=== PATIENT | female | born 1985 | race Hispanic/Latino ===

== ENCOUNTER 2019-01-04 08:00 | Emergency (ER) | payer MEDICAID, OTHER ==
[2019-01-04 08:42] LABS: RAPID GROUP A STREP NEGATIVE (NEGATIVE)
[2019-01-04] MEDS ORDERED: CEFTRIAXONE SODIUM 1 GM ONE (08:42)
[2019-01-04] MEDS ORDERED: KETOROLAC TROMETHAMINE 30MG/ML ONE (08:42)
[2019-01-04] MEDS ORDERED: DEXAMETHASONE SOD PHOSPHATE 10MG/ML 1ML VIAL ONE (08:42)
[2019-01-04] MEDS ORDERED: SODIUM CHLORIDE 0.9% 1000ML 1,000 ML IV ONE (08:43)
== END 2019-01-04 10:18 | disposition home or self-care (01) ==
LOC: EDH 08:00
DX: J06.9 Acute upper respiratory infection, unspecified (principal); Z90.49 Acquired absence of other specified parts of digestive tract; Z98.890 Other specified postprocedural states
CPT/HCPCS: 71045; 87804 ×2; 87880; 96374; 96375; 99285; J0696; J1100; J1885; J7030

== ENCOUNTER 2019-01-21 16:16 | Emergency (ER) | payer SELFPAY ==
[2019-01-21 16:51] LABS: BASOPHILS % (AUTO) 0.6 % (0.0-5.0); EOSINOPHILS % (AUTO) 2.9 % (0.0-8.0); HEMATOCRIT 40.7 % (36-48); LYMPHOCYTES % (AUTO) 24.6 % (21.0-51.0); MEAN CORPUSCULAR HEMOGLOBIN 27.3 pg (27.0-33.0); MEAN CORPUSCULAR HGB CONC 33.1 g/dL (32.0-36.0); MEAN CORPUSCULAR VOLUME 82.3 fL (79-99); MONOCYTES % (AUTO) 4.7 % (3.0-13.0); NEUTROPHILS % (AUTO) 67.2 % (40.0-77.0); NUCLEATED RED BLOOD CELLS 0.1 % (0.0-0.19); PLATELET COUNT (AUTO) 298 K/uL (130-400); RED BLOOD CELL COUNT(AUTO) 4.95 MIL/uL (4.00-5.50); RED CELL DISTRIBUTION WIDTH 13.4 % (11.0-15.5); WHITE BLOOD COUNT (AUTO) 10.8 K/uL (4.8-10.8)
[2019-01-21 17:03] LABS: CREATININE 0.8 mg/dL (0.5-1.5); POTASSIUM 3.9 mmol/L (3.5-5.1)
[2019-01-21] MEDS ORDERED: ONDANSETRON HCL 4 MG/2 ML VIAL ONE (17:03)
[2019-01-21] MEDS ORDERED: SODIUM CHLORIDE 0.9% 1000ML 1,000 ML IV ONE (17:04)
[2019-01-21] MEDS ORDERED: MORPHINE SULFATE 4 MG/1ML SYG ONE (17:04)
[2019-01-21 17:07] LABS: ALBUMIN 3.7 g/dL (3.5-5.0); BILIRUBIN,TOTAL 0.5 mg/dL (0.2-1.0); TOTAL PROTEIN, SERUM 7.8 g/dL (6.0-8.3)
[2019-01-21 17:11] LABS: APPEARANCE,URINE Cloudy (CLEAR); BILIRUBIN,URINE Negative (NEGATIVE); COLOR,URINE Yellow (YELLOW); GLUCOSE, URINE (UA) Negative (NEGATIVE); KETONES,URINE Negative (NEGATIVE); LEUKOCYTE ESTERASE ,URINE Negative (NEGATIVE); NITRATE,URINE Negative (NEGATIVE); OCCULT BLOOD,URINE Negative (NEGATIVE); PROTEIN,URINE Negative (NEGATIVE)
[2019-01-21 17:15] LABS: HCG,QUAL RESULT NEGATIVE (NEGATIVE)
[2019-01-21 17:16] LABS: BACTERIA,URINE Few /HPF (None Seen); RBC,URINE 0-1 /HPF (0-1); WBC,URINE 0-1 /HPF (0-1)
[2019-01-21 17:17] LABS: SQUAMOUS EPITHELIAL CELL,UR Moderate /HPF (0-2)
[2019-01-21] MEDS ORDERED: IOHEXOL-350 75 ML VIAL IV ONE (17:19)
[2019-01-21] MEDS ORDERED: NALOXONE HCL 0.4 MG/1 ML ML ONE (18:04)
[2019-01-21] MEDS ORDERED: KETOROLAC TROMETHAMINE 30MG/ML ONE (19:14)
== END 2019-01-21 20:01 | disposition home or self-care (01) ==
LOC: EDH 16:16
DX: K43.9 Ventral hernia without obstruction or gangrene (principal); R10.33 Periumbilical pain; E66.01 Morbid (severe) obesity due to excess calories; Z68.45 Body mass index [BMI] 70 or greater, adult
CPT/HCPCS: 36415; 74177; 80053; 81001; 81025; 83690; 85025; 96374; 96375; 99285; J1885; J2270; J2310; J2405; J7030; Q9967

== ENCOUNTER 2021-12-13 19:53 | Emergency (ER) | payer MEDICAID, OTHER ==
[~2021-12-13] VITALS: Ht 152.4 cm; Wt 178.3 kg
[2021-12-13] MEDS ORDERED: SOLU-MEDROL 125MG VIAL IVP ONE (20:30)
[2021-12-13] MEDS ORDERED: DiphenhydrAMINE HCL 50 MG/ML VIAL IV ONE (20:30)
[2021-12-13] MEDS ORDERED: EPINEPHRINE PF 1MG (1:1,000) 1 MG/ML AMP IM ONE (20:30)
[2021-12-13 20:50] VITALS: BP 157/96
[2021-12-13] MEDS ORDERED: PRED20TA3 PO (20:57)
[2021-12-13] MEDS ORDERED: FAMO20TA8 PO (20:57)
== END 2021-12-13 21:17 | disposition home or self-care (01) ==
LOC: EDH 19:55
DX: L23.9 Allergic contact dermatitis, unspecified cause (principal); Z90.49 Acquired absence of other specified parts of digestive tract; Z98.890 Other specified postprocedural states
CPT/HCPCS: 99284; 96374; 96375; 96372; J1200; J2930; J0171

== ENCOUNTER 2022-02-11 12:18 | Emergency (ER) | payer MEDICAID, OTHER ==
[~2022-02-11] VITALS: Ht 152.4 cm; Wt 11.6 kg
[~2022-02-11 12:18] MED LIST: FAMO20TA8 PO; PRED20TA3 PO
[2022-02-11 14:23] VITALS: BP 123/66
[2022-02-11] MEDS ORDERED: FLUT16H NASAL (15:07)
[2022-02-11] MEDS ORDERED: BENZ-39 PO (15:07)
== END 2022-02-11 15:21 | disposition home or self-care (01) ==
LOC: EDH 12:18
DX: J00 Acute nasopharyngitis [common cold] (principal); Z20.822 Contact with and (suspected) exposure to COVID-19
CPT/HCPCS: 99283; 87635; 87880; 87804 ×2; C9803

== ENCOUNTER → 2022-04-08 | Outpatient (CLI) | payer OTHER ==
[~2022-04-08] VITALS: Wt 188.2 kg
[~2022-04-08] MED LIST changes: +BENZ-39 PO; +FLUT16H NASAL
== END | disposition home or self-care (01) ==
LOC: DTH 09:12
PROVIDERS: ATTEND Surgery
DX: Z71.3 Dietary counseling and surveillance (principal); E66.01 Morbid (severe) obesity due to excess calories; E11.9 Type 2 diabetes mellitus without complications; I10 Essential (primary) hypertension; M19.91 Primary osteoarthritis, unspecified site; K21.9 Gastro-esophageal reflux disease without esophagitis; E78.00 Pure hypercholesterolemia, unspecified; K76.0 Fatty (change of) liver, not elsewhere classified; G47.33 Obstructive sleep apnea (adult) (pediatric); Z68.45 Body mass index [BMI] 70 or greater, adult
CPT/HCPCS: 97802

== ENCOUNTER → 2022-05-04 | Outpatient (CLI) | payer OTHER | END | disposition home or self-care (01) | LOC: DTH 09:00 | PROVIDERS: ATTEND Surgery | DX: Z71.3 Dietary counseling and surveillance (principal); E66.01 Morbid (severe) obesity due to excess calories; E11.9 Type 2 diabetes mellitus without complications; I10 Essential (primary) hypertension; E78.00 Pure hypercholesterolemia, unspecified; K21.9 Gastro-esophageal reflux disease without esophagitis; M19.91 Primary osteoarthritis, unspecified site; K76.0 Fatty (change of) liver, not elsewhere classified; Z68.45 Body mass index [BMI] 70 or greater, adult | CPT/HCPCS: 97803 ==

== ENCOUNTER → 2022-06-01 | Outpatient (CLI) | payer OTHER | END | disposition home or self-care (01) | LOC: DTH 08:59 | PROVIDERS: ATTEND Surgery | DX: Z71.3 Dietary counseling and surveillance (principal); E66.01 Morbid (severe) obesity due to excess calories; E11.9 Type 2 diabetes mellitus without complications; I10 Essential (primary) hypertension; E78.00 Pure hypercholesterolemia, unspecified; K76.0 Fatty (change of) liver, not elsewhere classified; M19.91 Primary osteoarthritis, unspecified site; K21.9 Gastro-esophageal reflux disease without esophagitis; G47.33 Obstructive sleep apnea (adult) (pediatric); Z68.45 Body mass index [BMI] 70 or greater, adult | CPT/HCPCS: 97803 ==

== ENCOUNTER → 2022-06-29 | Outpatient (CLI) | payer OTHER | END | disposition home or self-care (01) | LOC: DTH 09:02 | PROVIDERS: ATTEND Surgery | DX: Z71.3 Dietary counseling and surveillance (principal); E66.01 Morbid (severe) obesity due to excess calories; E11.9 Type 2 diabetes mellitus without complications; I10 Essential (primary) hypertension; E78.00 Pure hypercholesterolemia, unspecified; K76.0 Fatty (change of) liver, not elsewhere classified; K21.9 Gastro-esophageal reflux disease without esophagitis; M19.91 Primary osteoarthritis, unspecified site; G47.33 Obstructive sleep apnea (adult) (pediatric); Z68.45 Body mass index [BMI] 70 or greater, adult | CPT/HCPCS: 97803 ==

== ENCOUNTER → 2022-08-19 | Outpatient (CLI) | payer OTHER | END | disposition home or self-care (01) | LOC: DTH 09:10 | PROVIDERS: ATTEND Surgery | DX: Z71.3 Dietary counseling and surveillance (principal); E66.01 Morbid (severe) obesity due to excess calories; E11.9 Type 2 diabetes mellitus without complications; I10 Essential (primary) hypertension; M19.91 Primary osteoarthritis, unspecified site; E78.00 Pure hypercholesterolemia, unspecified; K76.0 Fatty (change of) liver, not elsewhere classified; K21.9 Gastro-esophageal reflux disease without esophagitis; Z68.45 Body mass index [BMI] 70 or greater, adult | CPT/HCPCS: 97803 ==

== ENCOUNTER → 2022-09-30 | Outpatient (CLI) | payer OTHER | END | disposition home or self-care (01) | LOC: DTH 10:06 | PROVIDERS: ATTEND Surgery | DX: Z71.3 Dietary counseling and surveillance (principal); E66.01 Morbid (severe) obesity due to excess calories; G47.33 Obstructive sleep apnea (adult) (pediatric); E11.9 Type 2 diabetes mellitus without complications; I10 Essential (primary) hypertension; M19.91 Primary osteoarthritis, unspecified site; E78.00 Pure hypercholesterolemia, unspecified; K76.0 Fatty (change of) liver, not elsewhere classified; K21.9 Gastro-esophageal reflux disease without esophagitis; Z68.45 Body mass index [BMI] 70 or greater, adult | CPT/HCPCS: 97803 ==

== ENCOUNTER → 2022-10-21 | Outpatient (CLI) | payer OTHER | END | disposition home or self-care (01) | LOC: DTH 10:56 | PROVIDERS: ATTEND Surgery | DX: Z71.3 Dietary counseling and surveillance (principal); E66.01 Morbid (severe) obesity due to excess calories; G47.33 Obstructive sleep apnea (adult) (pediatric); E11.9 Type 2 diabetes mellitus without complications; I10 Essential (primary) hypertension; M19.91 Primary osteoarthritis, unspecified site; E78.00 Pure hypercholesterolemia, unspecified; K76.0 Fatty (change of) liver, not elsewhere classified; K21.9 Gastro-esophageal reflux disease without esophagitis; Z68.45 Body mass index [BMI] 70 or greater, adult | CPT/HCPCS: 97803 ==

== ENCOUNTER → 2022-11-17 | Outpatient (CLI) | payer OTHER | END | disposition home or self-care (01) | LOC: DTH 10:04 | PROVIDERS: ATTEND Surgery | DX: Z71.3 Dietary counseling and surveillance (principal); E66.01 Morbid (severe) obesity due to excess calories; G47.33 Obstructive sleep apnea (adult) (pediatric); E11.9 Type 2 diabetes mellitus without complications; I10 Essential (primary) hypertension; M19.90 Unspecified osteoarthritis, unspecified site; E78.00 Pure hypercholesterolemia, unspecified; K76.0 Fatty (change of) liver, not elsewhere classified; K21.9 Gastro-esophageal reflux disease without esophagitis; Z68.45 Body mass index [BMI] 70 or greater, adult | CPT/HCPCS: 97803 ==

== ENCOUNTER 2022-12-02 05:46 | Emergency (ER) | payer MEDICAID, OTHER ==
[~2022-12-02] VITALS: Ht 152.4 cm; Wt 191.0 kg
[2022-12-02 06:16] VITALS: BP 136/78; PULSE 95; RESP 20; O2SAT 95
[2022-12-02] MEDS ORDERED: IBUP-1493 PO (06:51)
[2022-12-02] MEDS ORDERED: IBUPROFEN 800 MG TAB PO ONE (07:00)
== END 2022-12-02 07:18 | disposition home or self-care (01) ==
LOC: EDH 05:46
DX: M79.672 Pain in left foot (principal); I10 Essential (primary) hypertension; E78.00 Pure hypercholesterolemia, unspecified; E66.01 Morbid (severe) obesity due to excess calories; Z68.45 Body mass index [BMI] 70 or greater, adult; Z90.49 Acquired absence of other specified parts of digestive tract; Z79.899 Other long term (current) drug therapy
CPT/HCPCS: 73630

== ENCOUNTER 2023-01-13 13:41 | Emergency (ER) | payer MEDICAID ==
[~2023-01-13] VITALS: Ht 152.4 cm; Wt 174.6 kg
[~2023-01-13 13:41] MED LIST changes: +ATOR10TA69 PO; -BENZ-39 PO; -FAMO20TA8 PO; -FLUT16H NASAL; +LOSA50TA64 PO; -PRED20TA3 PO
[2023-01-13 15:15] VITALS: BP 126/82; PULSE 89; RESP 16; O2SAT 98
[2023-01-13 15:18] LABS: BASOPHILS # (AUTO) 0.06 K/uL (0.00-0.20); BASOPHILS % (AUTO) 0.6 % (0.0-5.0); EOSINOPHILS # (AUTO) 0.28 K/uL (0.00-0.70); EOSINOPHILS % (AUTO) 2.9 % (0.0-8.0); HEMATOCRIT 41.5 % (36-48); IMMATURE GRANULOCYTE ABSOLUTE 0.04 K/uL (0-1); LYMPHOCYTES # (AUTO) 2.4 K/uL (1.0-4.8); MEAN CORPUSCULAR HEMOGLOBIN 27.4 pg (27.0-33.0); MEAN CORPUSCULAR HGB CONC 32.5 g/dL (32.0-36.0); MEAN CORPUSCULAR VOLUME 84.2 fL (79-99); MONOCYTES # (AUTO) 0.6 K/uL (0.1-1.0); MONOCYTES % (AUTO) 6.4 % (3.0-13.0); NEUTROPHILS # (AUTO) 6.5 K/uL (1.8-7.7); NEUTROPHILS % (AUTO) 65.7 % (40.0-77.0); PLATELET COUNT (AUTO) 328 K/uL (130-400); RED BLOOD CELL COUNT(AUTO) 4.93 MIL/uL (4.00-5.50); WHITE BLOOD COUNT (AUTO) 9.8 K/uL (4.8-10.8)
[2023-01-13 15:27] LABS: CREATININE 1.4 mg/dL (0.5-1.5); POTASSIUM 3.4 mmol/L (3.5-5.1)
[2023-01-13 15:32] LABS: ALBUMIN 3.9 g/dL (3.5-5.0); BILIRUBIN,TOTAL 0.8 mg/dL (0.2-1.0); TOTAL PROTEIN, SERUM 8.5 g/dL (6.0-8.3)
[2023-01-13 15:37] LABS: HCG,QUALITATIVE URINE NEGATIVE (NEGATIVE)
[2023-01-13] MEDS ORDERED: IOHEXOL-350 75 ML VIAL IV ONE (15:51)
[2023-01-13 16:14] LABS: ADD UA MICROSCOPIC YES; APPEARANCE,URINE TURBID (CLEAR); BILIRUBIN,URINE NEGATIVE (NEGATIVE); COLOR,URINE BROWN (YELLOW); GLUCOSE, URINE (UA) NEGATIVE (NEGATIVE); KETONES,URINE 10 mg/dL (NEGATIVE); LEUKOCYTE ESTERASE ,URINE 500 Leu/uL (NEGATIVE); NITRATE,URINE NEGATIVE (NEGATIVE); OCCULT BLOOD,URINE LARGE (NEGATIVE); PH,URINE 5.5 (5.0-8.0); PROTEIN,URINE 100 mg/dL (NEGATIVE); UROBILINOGEN,URINE 0.2 mg/dL (0.2-1.0)
[2023-01-13] MEDS ORDERED: CEFTRIAXONE 1G VIAL IVPB ONE (16:30)
[2023-01-13] MEDS ORDERED: POTASSIUM BICARB/CIT AC 25 MEQ TABLET.EFF PO ONE (16:30)
[2023-01-13 16:33] LABS: BACTERIA,URINE MOD /HPF (None Seen); MUCUS,URINE FEW LPF (None Seen); RBC,URINE TNTC /HPF (0-1); SQUAMOUS EPITHELIAL CELL,UR MANY /HPF (0-2); WBC,URINE TNTC /HPF (0-1)
[2023-01-13] MEDS ORDERED: ONDANSETRON 4MG INJ IVP ONE (17:00)
[2023-01-13] MEDS ORDERED: MORPHINE 4 MG SYG IM ONE (17:00)
[2023-01-13] MEDS ORDERED: 0.9%NACL 1000ML 1,000 ML IV ONE (17:30)
[2023-01-13] MEDS ORDERED: CEPH500B PO (18:07)
== END 2023-01-13 18:32 | disposition home or self-care (01) ==
LOC: EDH 13:41
DX: N39.0 Urinary tract infection, site not specified (principal); I10 Essential (primary) hypertension; E78.00 Pure hypercholesterolemia, unspecified; Z79.899 Other long term (current) drug therapy; Z90.49 Acquired absence of other specified parts of digestive tract; Z98.890 Other specified postprocedural states; E66.01 Morbid (severe) obesity due to excess calories; Z68.45 Body mass index [BMI] 70 or greater, adult
CPT/HCPCS: 99285; 74177; 96374; 96375; 80053; 83690; 85025; 87077 ×2; 87088; 87186 ×2; 81001; 81025; 36415; 96372; J7030; J0696; J2405; J2270; Q9967

== ENCOUNTER 2023-02-15 13:49 | Emergency (ER) | payer MEDICAID ==
[~2023-02-15] VITALS: Ht 152.4 cm; Wt 170.1 kg
[~2023-02-15 13:49] MED LIST changes: +CEPH500B PO
[2023-02-15 14:21] VITALS: BP 123/46; PULSE 100; RESP 16
[2023-02-15 15:29] LABS: BASOPHILS # (AUTO) 0.03 K/uL (0.00-0.20); BASOPHILS % (AUTO) 0.3 % (0.0-5.0); EOSINOPHILS # (AUTO) 0.19 K/uL (0.00-0.70); IMMATURE GRANULOCYTE ABSOLUTE 0.04 K/uL (0-1); LYMPHOCYTES # (AUTO) 2.3 K/uL (1.0-4.8); LYMPHOCYTES % (AUTO) 23.5 % (21.0-51.0); MEAN CORPUSCULAR HEMOGLOBIN 27.1 pg (27.0-33.0); MEAN CORPUSCULAR HGB CONC 32.8 g/dL (32.0-36.0); MEAN CORPUSCULAR VOLUME 82.7 fL (79-99); MONOCYTES # (AUTO) 0.5 K/uL (0.1-1.0); MONOCYTES % (AUTO) 4.9 % (3.0-13.0); NEUTROPHILS # (AUTO) 6.7 K/uL (1.8-7.7); NEUTROPHILS % (AUTO) 68.9 % (40.0-77.0); PLATELET COUNT (AUTO) 322 K/uL (130-400); RED CELL DISTRIBUTION WIDTH 13.2 % (11.0-15.5); WHITE BLOOD COUNT (AUTO) 9.7 K/uL (4.8-10.8)
[2023-02-15 15:47] LABS: CREATININE 0.6 mg/dL (0.5-1.5); POTASSIUM 3.7 mmol/L (3.5-5.1)
[2023-02-15 15:52] LABS: ALBUMIN 3.7 g/dL (3.5-5.0); BILIRUBIN,TOTAL 0.8 mg/dL (0.2-1.0)
== END 2023-02-15 18:51 | disposition left against medical advice (07) ==
LOC: EDH 13:49
DX: R10.9 Unspecified abdominal pain (principal); Z53.21 Procedure and treatment not carried out due to patient leaving prior to being seen by health care provider
CPT/HCPCS: 36415; 80053; 85025; 99281

== ENCOUNTER → 2023-11-28 | Outpatient (CLI) | payer MEDICAID ==
[~2023-11-28] MED LIST changes: +IOHEXOL-350 75 ML VIAL IV ONE
== END | disposition home or self-care (01) ==
LOC: RAH 07:46
PROVIDERS: ATTEND Surgery
DX: K43.9 Ventral hernia without obstruction or gangrene (principal); K43.6 Other and unspecified ventral hernia with obstruction, without gangrene; K57.30 Diverticulosis of large intestine without perforation or abscess without bleeding; Z90.49 Acquired absence of other specified parts of digestive tract
CPT/HCPCS: 74177; Q9967

== ENCOUNTER 2024-01-05 05:56 | Observation (INO) | payer MEDICAID ==
--- NOTE | 2024-01-02 13:54 | EKG ---
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
[2024-01-02 14:00] VITALS: BP 140/90; PULSE 51; RESP 18; TEMP 98
[2024-01-02 14:01] LABS: BASOPHILS # (AUTO) 0.04 K/uL (0.00-0.20); BASOPHILS % (AUTO) 0.6 % (0.0-5.0); EOSINOPHILS # (AUTO) 0.17 K/uL (0.00-0.70); EOSINOPHILS % (AUTO) 2.4 % (0.0-8.0); HEMATOCRIT 40.3 % (36-48); IMMATURE GRANULOCYTE ABSOLUTE 0.02 K/uL (0-1); LYMPHOCYTES # (AUTO) 2.3 K/uL (1.0-4.8); LYMPHOCYTES % (AUTO) 31.4 % (21.0-51.0); MEAN CORPUSCULAR HEMOGLOBIN 27.3 pg (27.0-33.0); MEAN CORPUSCULAR HGB CONC 32.3 g/dL (32.0-36.0); MEAN CORPUSCULAR VOLUME 84.5 fL (79-99); MONOCYTES # (AUTO) 0.4 K/uL (0.1-1.0); NEUTROPHILS # (AUTO) 4.3 K/uL (1.8-7.7); NEUTROPHILS % (AUTO) 60.3 % (40.0-77.0); PLATELET COUNT (AUTO) 293 K/uL (130-400); RED BLOOD CELL COUNT(AUTO) 4.77 MIL/uL (4.00-5.50); RED CELL DISTRIBUTION WIDTH 12.9 % (11.0-15.5); WHITE BLOOD COUNT (AUTO) 7.2 K/uL (4.8-10.8)
[2024-01-02 14:10] LABS: CREATININE 0.7 mg/dL (0.5-1.0)
--- NOTE | 2024-01-02 16:46 | NUR ---
RE: EKG REPOPRTED EKG RESULTS TO DR ONEILL, PATIENT HAS CARDIAC CLEARANCE. NO NEW ORDERS RECEIVED.
[2024-01-05] VITALS (26 sets, daily range): BP systolic 117–142; BP diastolic 61–83; PULSE 46–73; RESP 12–18; TEMP 97–98.2; O2SAT 92
[~2024-01-05] VITALS: Ht 152.4 cm; Wt 134.3 kg
[2024-01-05] MEDS: ceFAZolin SODIUM 1 GM VIAL ONE (06:44)
[2024-01-05] MEDS: ceFAZolin SODIUM 2 GM VIAL ONE (06:44)
[2024-01-05] MEDS: LACTATED RINGERS 1000ML 1,000 ML IV ONE (06:45)
[2024-01-05] MEDS ORDERED: MIDAZOLAM HCL 1 MG/ML 2ML VIAL ONE (07:06)
[2024-01-05] MEDS ORDERED: rocuRONium bROMide 10MG/1ML 5ML VL ONE ×3 (07:06→10:07)
[2024-01-05] MEDS ORDERED: proPOFol 10 MG/ML 20ML VIAL IV ONE ×2 (07:06→11:08)
[2024-01-05] MEDS ORDERED: LIDOCAINE PF 100MG/5ML (2%) SYRINGE 5ML ONE (07:06)
[2024-01-05] MEDS ORDERED: FENTanyl CITRate PF 50 MCG/1 ML 5ML AMP IV ONE (07:07)
[2024-01-05] MEDS ORDERED: GLYCOPYRROLATE 0.2 MG/ML 5 ML VIAL ONE (08:18)
[2024-01-05] MEDS ORDERED: dexaMETHasone SOD PHOSPHATE 10MG/ML 1ML VIAL ONE (08:44)
[2024-01-05] MEDS ORDERED: ondanSETRON 4MG INJ ONE (08:45)
[2024-01-05] MEDS ORDERED: ketOROlac 30MG VIAL (30MG/ML) ONE (08:46)
[2024-01-05] MEDS: BUPIvacaine/PF 0.5% 30ML VIAL ONE (08:56)
[2024-01-05] MEDS ORDERED: NEOSTIGMINE METHYLSULFATE 1MG/ML IV ONE (10:56)
[2024-01-05] MEDS: acetaMINOPHEN 100 ML ONE (11:34)
[2024-01-05] MEDS: GLYCOPYRROLATE 0.2 MG/ML 5 ML VIAL ONE (11:44)
[2024-01-05] MEDS ORDERED: hydroMORPHone 1 MG INJ IVP PRN (12:00)
[2024-01-05] MEDS ORDERED: ketOROlac 30MG VIAL (30MG/ML) IV PRN (12:00)
[2024-01-05] MEDS ORDERED: HYDROcod/acetaMINOPHEN 7.5/325 MG 15 ML UDCUP PO PRN (12:00)
[2024-01-05] MEDS ORDERED: PROCHLORPERAZINE 10MG/2ML INJ IV PRN (12:00)
[2024-01-05] MEDS: morPHINE 2 MG SYG ONE (12:14)
--- NOTE | 2024-01-05 12:30 | NUR ---
PT BROUGHT TO FLOOR IN ROOM 428. VS SIGNS STABLE. BREATHS SOUNDS EVEN AND UNLABORED. PT IS ORIENTED X3. EYES CLOSED WHEN RESPONDING. PT STATES SHE IS SLEEPY. INCISION SITES CLEAN AND DRY. PT IS PENDING ADMITTING ORDERS. NOTIFIED CHARGE NURSE DEEPA SANDOVAL AND CLINICAL TRAILER TRUCK DRIVER LORI HOSKINS. GATO MADE DECORATOR STREET AND BUILDING AWARE.
[2024-01-05] MEDS: LACTATED RINGERS 1000ML 1,000 ML IV SCH (12:32)
[2024-01-05] MEDS: ENOXAPARIN SODIUM 30 MG/0.3 ML SQ SCH (15:15)
--- NOTE | 2024-01-05 15:25 | NUR ---
Pt is ambulating already with nursing and has ambulated to RR . DC PT
--- NOTE | 2024-01-05 17:52 | OP ---
Operative Note: DATE OF PROCEDURE: 01/05/24 SURGEON: ANABELLE SOLIS MD ROLLER OPERATOR: Prabhu Solis MD PA-C ANESTHESIA: General and Local ANESTHESIOLOGIST/JOURNEYMAN TOOL AND DIE MAKER: [facility] [facility] [place] PREOPERATIVE DIAGNOSIS: Ventral hernia with incarcerated small bowel and omentum POSTOPERATIVE DIAGNOSIS: NO hernia present. Due to the patient's body habitus the patient had a large diastasis with intact but stretched fascia and significant interloop and posterior abdominal wall adhesions with the small bowel and omentum. SYNOPSIS: Greater than 2 hours spent lysing adhesions assess and the bowel was thoroughly examined for any sign of iatrogenic entry. No such injury was found. PROCEDURE: He is not able to appreciate robotic and laparoscopic assisted extensive lysis of adhesions greater than 2 hours ESTIMATED BLOOD LOSS: Minimal, less than 20 cc INDICATIONS: As above. Patient with history of bowel obstructive-type symptoms with concern for ventral hernia DESCRIPTION OF PROCEDURE: After standard precautions and preparations ordered taken a Veress needle and optical trocar we used into the abdominal cavity. We immediately ran into areas of adhesions to the posterior abdominal wall and the omentum and small bowel. Several more trocars were placed under direct vision in non standard locations in order to utilize laparoscopic toes to begin lysing adhesions. Once we created enough space to allow for proper placement of our robotic trocars we did so and docked the robot in the standard fashion. We would utilize the improved dexterity of the robotic tools to continue lysing adhesions. There was a cluste r of small bowel down in the pelvis that was freed from the posterior abdominal wall and interloop adhesions were freed up to allow for better small bowel peristalsis. As we took down adhesions and eventually cleared the posterior abdominal wall completely of adhesions to the omentum and small intestine became obvious that the patient did not have an actual fascial defect hernia but instead had a very large stretched diastasis of the abdominal wall secondary to her body habitus. There was no formal defect close. We spent time re-examining the intestine that was involved in the lysis of adhesions to ensure that there was no sign of echogenic injury. There was not. At the end of the case all instrument counts were for vitals correct prior to any of the case including needles and sponges. ANABELLE SOLIS MD Jan 05, 2024 17:52
--- NOTE | 2024-01-05 17:59 | PN ---
GENERAL SURGERY PROGRESS NOTE Date/Time Patient Seen: [01/05/2024 1100 ] Problem List: [ ] Interval History: [Postop day 0. Pain tolerable with p.r.n. medications. ] Current Medications Medications (Trade) Dose Ordered Sig/Joanna Route Start Time Stop Time Status Last Admin Dose Admin Enoxaparin Sodium (Lovenox) 50 mg Q12H SQ 01/05/24 12:00 02/04/24 11:59 01/05/24 15:15 50 MG Famotidine (Pepcid 20mg Vial) 20 mg BID IV 01/05/24 21:00 02/04/24 20:59 Lactated Ringer's 1,000 ml @ 125 mls/hr Q8H IV 01/05/24 12:00 02/04/24 11:59 01/05/24 12:32 125 MLS/HR Physical Examination: GENERAL: [No acute distress.] Abdominal exam: Incisions clean, dry and intact, Dermabond in place Vital Signs (last 8hr) Date Time Temp Pulse Resp B/P (MAP) Pulse Ox O2 Delivery O2 Flow Rate FiO2 01/05/24 16:15 97.5 65 18 117/66 98 Nasal Cannula 2.0 01/05/24 15:15 97.9 55 18 139/83 98 Nasal Cannula 2.0 01/05/24 14:15 97.9 49 18 132/61 99 Nasal Cannula 2.0 01/05/24 13:45 97.7 54 18 137/83 98 Nasal Cannula 2.0 01/05/24 13:15 97.7 48 18 138/81 98 Nasal Cannula 2.0 01/05/24 13:00 97.3 49 18 142/83 100 Nasal Cannula 2.0 01/05/24 12:45 97.3 50 18 131/76 97 Nasal Cannula 2.0 01/05/24 12:35 97.3 57 14 139/77 99 Nasal Cannula 2.0 01/05/24 12:30 55 16 142/76 99 Nasal Cannula 2.0 01/05/24 12:30 97.3 73 18 138/63 95 Nasal Cannula 2.0 01/05/24 12:25 56 17 134/78 98 Nasal Cannula 2.0 01/05/24 12:20 54 15 128/66 99 Nasal Cannula 2.0 01/05/24 12:15 51 17 140/77 98 Nasal Cannula 2.0 01/05/24 12:10 54 12 139/82 98 Nasal Cannula 2.0 01/05/24 12:05 55 12 139/79 98 Nasal Cannula 2.0 01/05/24 12:00 56 15 138/77 99 Nasal Cannula 2.0 01/05/24 11:55 54 13 139/78 99 Nasal Cannula 2.0 01/05/24 11:50 59 18 138/79 99 Nasal Cannula 2.0 01/05/24 11:45 58 13 126/71 98 Nasal Cannula 2.0 01/05/24 11:40 46 12 128/74 100 Nonrebreathing Mask 100 01/05/24 11:35 48 12 128/70 100 Nonrebreathing Mask 100 01/05/24 11:30 48 14 126/69 100 Nonrebreathing Mask 100 01/05/24 11:25 97.0 52 13 130/78 100 Nonrebreathing Mask 100 Laboratory: [ ] Chemistry Labs: Test 01/05/24 16:08 01/05/24 06:30 Range/Units Whole Blood Glucose 129 H 70-110 MG/DL Serum Test, Qualitative NEGATIVE NEGATIVE Diagnostics / Radiology: [Copy/Paste Echos/Imaging Report here] Impression and Plan: [Plan is for discharge home in the next day or two with negative upper GI, patient tolerating p.o., ambulatory and pain under control. ] ANABELLE SOLIS MD Jan 05, 2024 17:59
--- NOTE | 2024-01-05 20:30 | NUR ---
POST OP: PT AMBULATING IN ROOM, STATES SHE HAS ONLY BURPED BUT HAS NOT PASSED GAS. PT ENCOURAGED TO AMBULATE IN HALLWAY TOLERATED TO HELP PASS GAS AND HELP WITH GASTRIC MOTILITY. PT WITH 10 SMALL ABD INCISIONS WITH DERMABOND NO BLEEDING NOTED. PT INSTRUCTED ON CLEAR LIQUID DIET AND INFORMED OF UPPER GI SERIES TO BE PREFORMED IN AM. ADVISED NOT TO EAT OR DRINK ANYTHING AFTER MIDNIGHT FOR EXAM. PT HAS CHIPS AND COOKIES ON BEDSIDE TABLE ADVISED NOT TO EAT SOLID FOOD TO PREVENT NAUSEA/VOMITING. PT VERBALIZES UNDERSTANDING. CALL HAIRSTON WITHIN REACH.
[2024-01-05] MEDS: FAMOTIDINE 20MG VIAL IV SCH (20:41)
[2024-01-05] MEDS: hydroMORPHone 0.5 MG SYG (0.5MG/0.5ML) IVP PRN (20:45)
[2024-01-05] MEDS: ondanSETRON 4MG INJ IVP PRN (20:45)
[2024-01-06] VITALS: BP 110/59; PULSE 52; RESP 18; TEMP 98.3
[2024-01-06] MEDS: ENOXAPARIN SODIUM 60 MG/0.6 ML SQ SCH (02:19)
[2024-01-06 04:00] VITALS: BP 108/65; PULSE 56; RESP 20; TEMP 98
--- NOTE | 2024-01-06 07:54 | PN ---
GENERAL SURGERY PROGRESS NOTE Date/Time Patient Seen: [ January 06, 2024 at 7:30 a.m.] Problem List: [ ] Interval History: [Postop day 1. The patient is status post reported ventral hernia repair and extensive lysis of adhesions. The patient is awake alert and oriented x3 and resting comfortably in bed. The patient does not in acute distress. The patient is on a clear liquid iron tolerating per orally well. Recently placed NPO for pending upper GI series study. Patient endorses pain that is manageable with p.r.n. medication. Pain is generalized and incisional. There are no fever, chills. Patient is voiding freely and passing gas. Patient has been ambulating without assistance. Overall patient is clinically stable. Pending imaging studies. ] Current Medications Medications (Trade) Dose Ordered Sig/Joanna Route Start Time Stop Time Status Last Admin Dose Admin Enoxaparin Sodium (Lovenox 60mg) 50 mg Q12H SQ 01/06/24 03:00 02/04/24 11:59 01/06/24 02:19 50 MG Enoxaparin Sodium (Lovenox) 50 mg Q12H SQ 01/05/24 12:00 01/05/24 19:17 DC 01/05/24 15:15 50 MG Famotidine (Pepcid 20mg Vial) 20 mg BID IV 01/05/24 21:00 02/04/24 20:59 01/05/24 20:41 20 MG Lactated Ringer's 1,000 ml @ 125 mls/hr Q8H IV 01/05/24 12:00 02/04/24 11:59 01/06/24 05:27 125 MLS/HR Physical Examination: GENERAL: [No acute distress.] HEAD: [Normal with no signs of head trauma.] EYES: [PERRLA, EOMI, conjunctiva and sclera normal.] ENT: [Hearing grossly intact, normal oropharynx.] NECK: [Supple without JVD. There is no tenderness, lymphadenopathy, or masses. No thyromegaly. Normal carotid upstrokes without bruits.] LUNGS: [Clear breath sounds bilaterally. There are right basilar rales one third of the way up the chest. No wheezes, or rhonchi.] HEART: [Normal rate and rhythm. Normal S1 and S2 without mumurs, gallop or rub.] VASC: [Peripheral pulses +2 bilaterally.] ABD: [Bowel sounds normal, soft, nontender, no masses, no organomegaly. No audible bruits. Incisions clean and dry and well approximated] : [Not examined] LYMPH: [No lymphadenopathy noted.] EXT: [No clubbing, cyanosis or edema.] SKIN: [No rashes or lesions noted.] NEURO: [Awake, alert, and oriented x3. No focal sensory or strength deficits noted.] Vital Signs (last 8hr) Date Time Temp Pulse Resp B/P (MAP) Pulse Ox O2 Delivery O2 Flow Rate FiO2 01/06/24 04:00 98.1 56 20 108/65 95 Room Air 01/06/24 00:00 98.2 52 18 110/59 97 Room Air Laboratory: [ ] Chemistry Labs: Test 01/06/24 05:19 01/05/24 06:30 Range/Units Whole Blood Glucose 100 70-110 MG/DL Serum Test, Qualitative NEGATIVE NEGATIVE Impression and Plan: [The patient is progressing well. We will continue to monitor and treat pain as needed. GI/DVT prophylaxis recommended and encouraged. The patient may follow a full liquid diet after upper GI series complete. May resume home medications. Incision care, hydration, activity and dietary restrictions discuss in detail. The patient understands and agrees. The plan is to await imaging study results. If benign results consider discharge home today. We will call into place orders in the next 6 hours. Postoperative follow up appointment and postoperative medications sent by my office staff. ] STEPHANIE CARO Jan 06, 2024 07:54
[2024-01-06 08:00] VITALS: BP 111/58; PULSE 50; RESP 16; TEMP 98.1
[2024-01-06 08:20] VITALS: O2SAT 96
[2024-01-06] MEDS ORDERED: DIATR MEGLU/DIATRIZOATE SODIUM 30 ML BOTTLE ONE ×2 (09:03→11:15)
[2024-01-06] MEDS: ketOROlac 15MG/ML VIAL (15MG/ML) IV PRN (11:48)
[2024-01-06 12:00] VITALS: BP 140/91; PULSE 53; RESP 16; TEMP 98
--- NOTE | 2024-01-06 13:22 | NUR ---
DCP: HOME Sw met with pt who lives at home with her 2 sons 15,11. Pt on SSD, has provider 15hrs a wk thru [facility], Has riya, shower chair and BSC. No HH or HD services. PCP is Martha Suarez and uses [facility] for rx. Addendum: 01/06/24 at 1324 by DESIRE COLE SS Amended: Links added.
[2024-01-06 16:00] VITALS: BP 118/74; PULSE 58; RESP 16; TEMP 97.6
--- NOTE | 2024-01-06 16:09 | HMCIMG ---
UPPER GI W/SMALL BOWEL REASON: rule out leak s/p extensive lysis of adhesions. COMPARISON: None TECHNIQUE: Gastrografin upper GI and small bowel follow-through study was performed. FINDINGS: There is no obstruction to the antegrade passage of contrast from mouth through descending colon. Contrast reached the descending colon in 3 hours. Normal esophageal stripping wave is seen. No evidence of hiatal hernia or gastroesophageal reflux is seen. Stomach is poorly distended. Duodenal bulb and duodenal sweep are unremarkable. Mucosal fold pattern of the jejunum and ileum are unremarkable. No leakage is seen. Large hernia is seen in the pelvis with bowel content. Soft tissue emphysema is seen may be related to recent surgery. No evidence of small bowel obstruction is seen. IMPRESSION: No obstruction or leakage is seen. Large hernia is seen in the lower pelvis with bowel content.
== END 2024-01-06 18:17 | disposition home or self-care (01) ==
LOC: DAH 05:56 → DAHIP 05:57 → DAH 05:57 → 4DH 12:30
PROVIDERS: ADMIT Surgery; ATTEND Surgery
DX: K43.6 Other and unspecified ventral hernia with obstruction, without gangrene (principal); K66.0 Peritoneal adhesions (postprocedural) (postinfection); N73.6 Female pelvic peritoneal adhesions (postinfective); I10 Essential (primary) hypertension; E78.5 Hyperlipidemia, unspecified; E66.01 Morbid (severe) obesity due to excess calories; M15.8 Other polyosteoarthritis; K91.1 Postgastric surgery syndromes; Z79.899 Other long term (current) drug therapy; Z90.49 Acquired absence of other specified parts of digestive tract; Z68.43 Body mass index [BMI] 50.0-59.9, adult
CPT/HCPCS: 80048; 84703 ×2; 85025; 86850 ×2; 86900 ×2; 86901 ×2; 36415 ×2; 93005; 49594; 96374; 96372 ×2; 96375 ×2; 82948 ×6; 96376; 74240; A6260; G0378 ×28; A4663; A4215 ×2; J7120; S0028; J3010; J0690 ×2; J1100; J2270; J3490 ×7; J2003; J1650 ×3; J2250; J2405 ×2; J1885 ×2; J2710; J0665; J1171 ×2; C1769; A4649; A4930; A4223 ×2; A4213; A4222; A4221; A4216; A4600; Q9963 ×2; J2704

== ENCOUNTER 2024-03-16 11:55 | Emergency (ER) | payer MEDICAID ==
[~2024-03-16] VITALS: Ht 152.4 cm; Wt 129.3 kg
[2024-03-16 12:12] VITALS: BP 111/82; PULSE 98; RESP 20; TEMP 99; O2SAT 96
--- NOTE | 2024-03-16 12:13 | ERN ---
ED Note History of Present Illness Stated Complaint: FEVER,MULTIPLE COMPLAINTS Chief Complaint: Cough Time Seen by MD: 12:05 Dictation: Patient is a 38-year-old female with complaints of flu-like symptoms to include cough with clear yellow phlegm for 2-3 days, frontal headache, clear rhinitis, sore throat with painful swallowing. She has no loss of taste or smell. No nausea vomiting no diarrhea. Patient goes to [facility] however has not been to see them. She denies history of asthma, pulmonary disease, diabetes has t aken nothing today prior to arrival Allergies: Coded Allergies: No Known Allergies (Unverified Allergy, Unknown, 01/22/19) Home Meds Active Scripts Albuterol Sulfate (Ventolin Hfa/Proventil Hfa/Proair Hfa) 90 Mcg Puff, 2 PUFF IH Q4H for WHEEZING, #1 INHALER 0 Refills Prov:JERRY CROFT SIGNALING DESIGN ENGINEER 03/16/24 Amoxicillin/Potassium Clav (Amox Tr-K Clv 875-125 mg Tab) 875 Mg-125 Mg Tablet, 1 EACH PO BID for 7 Days, #14 TAB 0 Refills Prov:JERRY CROFT SIGNALING DESIGN ENGINEER 03/16/24 Oseltamivir Phosphate (Tamiflu) 75 Mg Cap, 75 MG PO BID for 5 Days, #10 CAP Prov:JERRY CROFT SIGNALING DESIGN ENGINEER 03/16/24 Past Medical History Past Medical History: High Cholesterol, Hypertension Additional Past Medical Hx: Morbid obesity, ABD HERNIA Surgical History: Cholecystectomy, Other, Surgical History Other: GASTRIC SLEEVE, HERNIA Family History: HTN Social History: Negative, Lives with family History: Not Applicable LMP: Feb 20, 2024 RN Note Reviewed/Agreed w/PFSH: Yes Review of System Dictation CONSTITUTIONAL: Negative except for HPI fever HEAD/FACE: Negative except for HPI EENT: Negative except for HPI clear rhinitis/sore throat RESPIRATORY: Negative except for HPI productive cough with yellow clear phlegm GASTROINTESTINAL/ABDOMINAL: Negative except for HPI GENITOURINARY: Negative except for HPI MUSCULOSKELETAL: Negative except for HPI INTEGUMENTARY: Negative except for HPI NEUROLOGICAL/PSYCH: Negative except for HPI HEMATOLOGIC/LYMPHATIC: Negative except for HPI All Systems Negative, Except as noted above. 13 point review of systems assessed and all negative except for above. Initial Vital Sign VS Vital Signs Date Time Temp Pulse Resp B/P (MAP) Pulse Ox O2 Delivery O2 Flow Rate FiO2 03/16/24 12:00 99.0 98 20 111/82 96 Room Air 0 03/16/24 12:12 21 Physical Exam Dictation Vital Signs reviewed General Appearance: Alert, oriented x 3, mild acute distress, well developed, nourished. Morbidly obese Head and Face: non-traumatic. Eyes: PERRL, pink conjunctivas, eyelid no trauma, anterior chamber with arcus senilis. Ears: Pinnas intact and no signs of trauma or erythema ear canals clear and no discharge TM no erythema Nose: Clear discharge, no bleeding. Oropharynx: Mouth normal, tongue pink, pharynx clear mild pharyngeal erythema, tonsils no exudates, no abscesses noted, mucous membrane moist uvula midline, voice is clear Neck: Supple, non-tender, no thyromegaly, no masses, no JVD, no bruits Breast:Deferred Chest:No tenderness, no crepitus, no paradoxical movement, no retractions Lungs:Clear, well-ventilated, symmetric, no rales, no wheezing, no rhonchi, no stridor, good breath sounds bilaterally Heart: Regular rate, regular rhythm, no murmur, no gallops Vascular: no peripheral edema, Abdomen: Soft, positive bowel sounds, nondistended, no guarding, nontender, no rebound, no masses no hepatomegaly, no splenomegaly, no Meek's sign, no hernias. Rectal: Deferred Genital: Deferred Neurological: Normal speech, motor function intact, sensory function intact Musculoskeletal: Neck nontender, full range of motion, back nontender, full range of motion, Extremities: nontender, full range of motion Skin: Color pink, dry, no turgor, no rash, no lacerations, no abrasions, no contusions. Lymphatic: Deferred Results (Laboratory/Radiology) Laboratory/Radiology Labs Reviewed?: Yes ED Course ED Course 2 50 PATIENT DISCHARGED HOME WITH INFLUENZA A, STREP B POSITIVE PATIENT GIVEN [id number] WHILE IN THE EMERGENCY ROOM. DISCHARGED HOME WITH AUGMENTIN AND TAMIFLU Medical Decision Making MDM MEDICAL DISCHARGE MAKING BASED ON FLU COVID AND STREP SWABS. PATIENT IS STREP B POSITIVE INFLUENZA A POSITIVE DISCHARGED HOME WITH SUPPORTIVE MEDICATIONS AND TOLD TO SEE HER PRIMARY CARE DOCTOR FOR RETURNED TO WORK DX & DISP Disposition: Discharge Departure Impression: Primary Impression: Influenza A Additional Impressions: Strep pharyngitis, Cough Condition: Stable Scripts Albuterol Sulfate (Ventolin Hfa/Proventil Hfa/Proair Hfa) 90 Mcg Puff 2 PUFF IH Q4H for WHEEZING, #1 INHALER 0 Refills Prov: JERRY CROFT SIGNALING DESIGN ENGINEER 03/16/24 Amoxicillin/Potassium Clav (Amox Tr-K Clv 875-125 mg Tab) 875 Mg-125 Mg Tablet 1 EACH PO BID for 7 Days, #14 TAB 0 Refills Prov: JERRY CROFT NP 03/16/24 Oseltamivir Phosphate (Tamiflu) 75 Mg Cap 75 MG PO BID for 5 Days, #10 CAP Prov: JERRY CROFT SIGNALING DESIGN ENGINEER 03/16/24 Additional Instructions: Follow-up with primary care provider in 1 to 2 days. Take medications as directed here in the emergency room. Okay to continue home medications unless otherwise discussed during your visit in the emergency room today. Return to your nearest emergency room if symptoms worsen or if there is no improvement. Call 911 if you need immediate assistance. Take Tylenol or Motrin [id number] as needed and if no contraindications are present. Increase oral hydration. A wound culture or urine culture was ordered here in the emergency room department please follow-up with primary care provider and advise them to get repeat ports from our facility. If you had any Christiano wrap/splints that were applied here, please do not remove them until you see your primary care or specialty. Take Tamiflu and Augmentin as directed until gone. , increase your water intake., use albuterol inhaler every4 hours while awake for the next three days. Do not returned to work until cleared back by your doctor at the [facility] Referrals: ANAHY VEGAS NP (PCP) Time of Disposition: 12:50 I have reviewed the case, and I agree with, Diagnosis and Plan I performed a substantive portion of the visit. I have reviewed and personally made and approve the management plan that is documented in the notes by myself with SHIVAM/resident. I acknowledged full responsibility for the patient's management plan. JERRY CROFT NP Mar 16, 2024 12:13 FRANDY OLIVARES DO Mar 21, 2024 10:43
[2024-03-16] MEDS: dexaMETHasone SOD PHOSPHATE 4 MG/ML 1ML VIAL IM ONE (12:19)
[2024-03-16 12:36] LABS: RAPID GROUP A STREP positive (NEGATIVE)
[2024-03-16 12:38] LABS: INFLUENZA TYPE B Negative For Type B (NEGATIVE)
[2024-03-16 12:44] LABS: SARS-CoV-2, RNA, NAAT NEGATIVE SARS CoV-2 (NEGATIVE)
[2024-03-16 12:45] LABS: INFLUENZA TYPE A Positive For Type A (NEGATIVE)
[2024-03-16] MEDS ORDERED: AMOX1TAB16 PO (12:55)
[2024-03-16] MEDS ORDERED: OSEL75 PO (12:55)
[2024-03-16] MEDS ORDERED: ALBUHFA IH (12:55)
[2024-03-16] MEDS: AMOX/CLAV 875/125MG TAB PO ONE (13:06)
== END 2024-03-16 13:23 | disposition home or self-care (01) ==
LOC: EDH 11:55
DX: J10.1 Influenza due to other identified influenza virus with other respiratory manifestations (principal); J02.0 Streptococcal pharyngitis; R05.9 Cough, unspecified; E66.01 Morbid (severe) obesity due to excess calories; E78.00 Pure hypercholesterolemia, unspecified; I10 Essential (primary) hypertension; Z90.49 Acquired absence of other specified parts of digestive tract; Z20.822 Contact with and (suspected) exposure to COVID-19
CPT/HCPCS: 99283; 87635; 87880; 87804 ×2; 96372; J1100

== ENCOUNTER → 2024-08-19 | Emergency (ER) | payer MEDICAID ==
[~2024-08-19] VITALS: Ht 152.4 cm; Wt 123.5 kg
[~2024-08-19] MED LIST changes: +ALBUHFA IH; +AMOX1TAB16 PO; -ATOR10TA69 PO; -CEPH500B PO; -IOHEXOL-350 75 ML VIAL IV ONE; -LOSA50TA64 PO; +OSEL75 PO
--- NOTE | 2024-08-19 21:50 | EKG ---
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
[2024-08-19 21:53] LABS: APPEARANCE,URINE CLEAR (CLEAR); GLUCOSE, URINE (UA) NEGATIVE (NEGATIVE); LEUKOCYTE ESTERASE ,URINE 25 Leu/uL (NEGATIVE); NITRATE,URINE NEGATIVE (NEGATIVE); OCCULT BLOOD,URINE MODERATE (NEGATIVE)
--- NOTE | 2024-08-19 21:56 | ERN ---
ED Note History of Present Illness Stated Complaint: LOW BP Chief Complaint: Dizzy/Light Headed Time Seen by MD: 21:18 Time Seen by Midlevel: 21:18 Dictation: The patient is a 38-year-old female with a history of gastric sleeve who presents to the emergency department with complaints of frontal headache, dizziness, weakness onset this morning. Patient reports she feels like she is going to pass out. Reports dizziness is worse with standing. Patient reports she gets this feeling when her blood pressure is low but she denies taking her blood pressure at home. Patient otherwise denies any nausea vomiting or diarrhea, denies any fevers, denies any falls or recent trauma. Allergies: Coded Allergies: No Known Allergies (Unverified Allergy, Unknown, 01/22/19) Home Meds Active Scripts Albuterol Sulfate (Ventolin Hfa/Proventil Hfa/Proair Hfa) 90 Mcg Puff, 2 PUFF IH Q4H for WHEEZING, #1 INHALER 0 Refills Prov:JERRY CROFT STUDIO ASSISTANT 03/16/24 Amoxicillin/Potassium Clav (Amox Tr-K Clv 875-125 mg Tab) 875 Mg-125 Mg Tablet, 1 EACH PO BID for 7 Days, #14 TAB 0 Refills Prov:JERRY CROFT NP 03/16/24 Oseltamivir Phosphate (Tamiflu) 75 Mg Cap, 75 MG PO BID for 5 Days, #10 CAP Prov:JERRY CROFT STUDIO ASSISTANT 03/16/24 Past Medical History Past Medical History: Unable to Obtain Additional Past Medical Hx: Morbid obesity, ABD HERNIA Surgical History: Bariatric Surgery Surgical History Other: GASTRIC SLEEVE, HERNIA Family History: HTN Social History: Negative, Lives with family History: Not Applicable LMP: Aug 15, 2024 RN Note Reviewed/Agreed w/PFSH: Yes Review of System Dictation Constitutional: Negative for fever,chills, and weight loss Eyes: Negative for injury, pain,redness, and discharge ENT: Negative for injury,pain or swelling Cardiovascular: Negative for chest pain, palpitations, and edema Respiratory: Negative for shortness of breath, cough, and wheezing, Abdomen/GI: Negative for abdominal pain, nausea, vomiting, diarrhea, and constipation Back: Negative for injury and pain : Negative for injury, bleeding and discharge MS/Extremity: Negative for injury and deformity Skin: Negative for rash, and discoloration Neuro: Negative for numbness, tingling, and seizure positive for weakness, heada harini, dizziness Psych: Negative for suicide ideation, homicidal ideation, and hallucinations Initial Vital Sign VS Vital Signs Date Time Temp Pulse Resp B/P (MAP) Pulse Ox O2 Delivery O2 Flow Rate FiO2 08/19/24 21:09 98.4 75 19 128/68 97 Room Air 0 08/19/24 21:19 21 Physical Exam Dictation Vital Signs reviewed General Appearance: Alert, oriented x 3, no acute distress, well developed, nourished. Head and Face: non-traumatic. Eyes: PERRL, pink conjunctivas, eyelid no trauma, anterior chamber with arcus senilis. Ears: Pinnas intact and no signs of trauma or erythema ear canals clear and no discharge TM no erythema Nose: No discharge, no bleeding. Oropharynx: Mouth normal, tongue pink. pharynx clear,no erythema, tonsils no exudates, no abscesses noted, mucous membrane moist Neck: Supple, non-tender, no thyromegaly, no masses, no JVD, no bruits Breast:Deferred Chest:No tenderness, no crepitus, no paradoxical movement, no retractions Lungs:Clear, well-ventilated, symmetric, no rales, no wheezing, no rhonchi, no stridor, good breath sounds bilaterally Heart: Regular rate, regular rhythm, no murmur, no gallops Vascular: no peripheral edema, Abdomen: Soft, positive bowel sounds, nondistended, no guarding, nontender, no rebound, no masses no hepatomegaly, no splenomegaly, no Meek's sign, no hernias. Rectal: Deferred Genital: Deferred Neurological: Normal speech, motor function intact, sensory function intact , upper extremities equal in strength, lower extremities equal in strength, no facial droop, no slurred speech Musculoskeletal: Neck nontender, full range of motion, back nontender, full range of motion, Extremities: nontender, full range of motion Skin: Color pink, dry, no turgor, no rash, no lacerations, no abrasions, no contusions. Lymphatic: Deferred Results (Laboratory/Radiology) Laboratory/Radiology Laboratory Tests Test 08/19/24 21:40 08/19/24 21:54 Urine Color YELLOW (YELLOW) Urine Appearance CLEAR (CLEAR) Urine pH 6.0 (5.0-8.0) Urine Specific [place] 1.027 (1.001-1.031) Urine Protein 10 mg/dL (NEGATIVE) H Urine Glucose (UA) NEGATIVE mg/dL (NEGATIVE) Urine Ketones NEGATIVE mg/dL (NEGATIVE) Urine Occult Blood MODERATE (NEGATIVE) H Urine Nitrate NEGATIVE (NEGATIVE) Urine Bilirubin NEGATIVE mg/dL (NEGATIVE) Urine Urobilinogen 4.0 mg/dL (0.2-1.0) H Urine Leukocyte Esterase 25 Gabby/uL (NEGATIVE) H Urine RBC 51-100 /HPF (0-1) H Urine WBC 2-5 /HPF (0-1) H Urine Squamous Epithelial Cells MANY /HPF (0-2) Urine Bacteria RARE /HPF (None Seen) Urine HCG, Qualitative NEGATIVE (NEGATIVE) White Blood Count 7.8 K/uL (4.8-10.8) Red Blood Count 4.78 MIL/uL (4.00-5.50) Hemoglobin 12.9 g/dL (12.0-16.0) Hematocrit 40.1 % (36-48) Mean Corpuscular Volume 83.9 fL (79-99) Mean Corpuscular Hemoglobin 27.0 pg (27.0-33.0) Mean Corpuscular Hemoglobin Concent 32.2 g/dL (32.0-36.0) Red Cell Distribution Width 12.7 % (11.0-15.5) Platelet Count 310 K/uL (130-400) Mean Platelet Volume 10.1 fL (7.5-10.5) Immature Granulocyte % (Auto) 0.1 % (0-1) Neutrophils (%) (Auto) 55.0 % (40.0-77.0) Lymphocytes (%) (Auto) 36.5 % (21.0-51.0) Monocytes (%) (Auto) 5.5 % (3.0-13.0) Eosinophils (%) (Auto) 2.3 % (0.0-8.0) Basophils (%) (Auto) 0.6 % (0.0-5.0) Neutrophils # (Auto) 4.3 K/uL (1.8-7.7) Lymphocytes # (Auto) 2.8 K/uL (1.0-4.8) Monocytes # (Auto) 0.4 K/uL (0.1-1.0) Eosinophils # (Auto) 0.18 K/uL (0.00-0.70) Basophils # (Auto) 0.05 K/uL (0.00-0.20) Absolute Immature Granulocyte (auto 0.01 K/uL (0-1) Nucleated Red Blood Cells 0.0 % (0.0-0.19) Sodium Level 145 mmol/L (136-145) Potassium Level 4.3 mmol/L (3.5-5.1) Chloride Level 106 mmol/L (101-111) Carbon Dioxide Level 27 mmol/L (21-32) Blood Urea Nitrogen 16 mg/dL (7-18) Creatinine 0.5 mg/dL (0.5-1.0) Glomerular Filtration Rate Calc 122 mL/min (>90) Random Glucose 95 mg/dL (70-105) Total Calcium 8.9 mg/dL (8.5-10.1) Total Creatine Kinase 66 U/L (21-232) Troponin I High Sensitivity < 4 ng/L (4-50) L REASON: dizzy ORDERING PHYSICIAN: CHARLI DOMINGUEZ PROCEDURE: CXR1VW - CHEST 1VW EXAM: CR Chest, 1 view CLINICAL HISTORY: Dizziness. COMPARISON: Chest radiograph dated 01/04/2019. FINDINGS: The lungs show no infiltrates or other acute findings. No pleural effusion or pneumothorax. The cardiomediastinal silhouette is within normal limits. No acute osseous abnormality. IMPRESSION: No acute cardiopulmonary process is evident. No interval changes. /[place] REASON: dizzy,near syncope ORDERING PHYSICIAN: CHARLI DOMINGUEZ BULK SYSTEM OPERATOR PROCEDURE: HEAD WO - CT HEAD/BRAIN W/O CONTRAST ADDENDUM REPORT ADDENDUM: Results were shared by telephone at 02:05 am on 08-20-24 and acknowledged by Nurse Practitioner Gretchen Maxwell. /[place] EXAM: Non-contrast CT examination of the Brain CLINICAL HISTORY: Dizziness. Near syncope. TECHNIQUE: Thin collimated axial CT images of the brain were obtained, with sagittal and coronal reformatted images also submitted. A CT scan was done according to ALARA (As low as reasonably achievable). CONTRAST USED: None. COMPARISON: None provided. FINDINGS: Subtle peripheral wedge-shaped hypodensities and poor pierce-white matter differentiation in the bilateral frontal lobes, concerning acute infarctions. No hemorrhage or mass is evident. No hydrocephalus or abnormal extra-axial fluid collections. The posterior fossa is unremarkable. The skull base and calvarium are intact. The included portions of the paranasal sinuses and mastoid air cells are clear. IMPRESSION: Subtle peripheral wedge-shaped hypodensities and poor pierce-white matter differentiation in the bilateral frontal lobes, concerning acute infarctions. Recommend an MRI of the brain including DWI for further evaluation. /[place] Labs Reviewed?: Yes EKG: (+) rhythm (Sinus rhythm) EKG Comment: Date:08/19/2024 Time:2144 Ventricular rate:59 DE interval:168 QRS duration:83 QT/QTc:413 EKG interpretation: Sinus rhythm Reviewed by ED Attending no STEMI ED Course ED Course Orders Procedure Category Date Status Time Cbc With Differential LAB 08/19/24 Complete 21:27 Troponin I High LAB 08/19/24 Complete Sensitivity 21:27 Urinalysis Profile LAB 08/19/24 Complete 21:27 12 Lead Ekg Tracing- EKG 08/19/24 Complete Technical 21:27 0.9%Nacl 1000ml (Ns PHA 08/19/24 Complete 1000ml) 21:30 Creatine Kinase, Total LAB 08/19/24 Complete 21:27 Chest 1vw RAD 08/19/24 Resulted 21:27 Basic Metabolic Panel LAB 08/19/24 Complete 21:27 Orthostatic Vital CPOE 08/19/24 Transmitted Signs 21:27 ,Urine Test LAB 08/19/24 Complete 22:20 Ct Head/Brain W/O CT 08/19/24 Resulted Contrast 22:35 Current Medications Medications (Trade) Dose Ordered Sig/Joanna Route PRN Reason Start Time Stop Time Status Last Admin Dose Admin Sodium Chloride 1,000 ml @ 0 mls/hr ONCE ONCE IV 08/19/24 21:30 08/19/24 21:33 DC 08/19/24 21:57 Vital Signs Date Time Temp Pulse Resp B/P (MAP) Pulse Ox O2 Delivery O2 Flow Rate FiO2 08/20/24 01:16 97.2 54 16 120/67 99 Room Air* 0 08/19/24 22:42 98.4 74 19 127/65 97 Room Air* 0 08/19/24 22:01 98.4 58 19 140/84 97 Room Air* 0 08/19/24 22:01 98.4 78 19 123/67 97 Room Air* 0 08/19/24 22:00 98.4 60 19 124/58 97 Room Air* 0 08/19/24 21:19 98.4 75 19 128/68 97 Room Air* 0 08/19/24 21:09 98.4 75 19 128/68 97 Room Air 0 Medical Decision Making MDM MDM: The patient is a 38-year-old female with a history of gastric sleeve who presents to the emergency department with complaints of frontal headache, dizziness, weakness onset this morning. Patient reports she feels like she is going to pass out. Reports dizziness is worse with standing. Patient reports she gets this feeling when her blood pressure is low but she denies taking her blood pressure at home. Patient otherwise denies any nausea vomiting or diarrhea, denies any fevers, denies any falls or recent trauma. CBC showed no leukocytosis, no anemia, chemistry showed no electrolyte imbalance, normal renal function, negative troponins, x-ray showed no acute pathology. CT head showed subtle peripheral wedge-shaped hydro densities and poor pierce white matter differentiation in the bilateral frontal lobes concerning for acute infarction. Given no Neurology available at this hospital we would attempt to transfer patient. Case discussed with Dr. Bright who agrees for transfer for further workup and evaluation. Differential diagnosis: Dehydration, electrolyte imbalance, intracerebral hemorrhage, orthostatic hypotension, arrhythmia Comorbidities: Gastric sleeve, hypotension Tests considered and not ordered secondary to shared decision making include: none Previous outside records reviewed: none Risk of complication and/or morbidity or mortality of patient management: The patient meets criteria for transfer Need for emergency major/minor surgery: No There are no social concerns with this patient. I independently interpreted the tests I ordered (labs, urinalysis, etc.). I discussed the case with the hospitalist for transfer I discussed the case with the following specialists: none. Historian: pateint. I independently interpreted imaging studies and EKGs that I ordered (US, CT, XR, EKG, etc.). External chart review: none. Medical management and examination interpretation discussions were had by me with other qualified healthcare professionals as indicated for the patient's car e. Stroke Patient?: Ischemic Is Patient Candidate for t-PA?: No Did the Patient Receive t-PA?: No NIH STROKE SCALE: NIH STROKE SCALE Response (Comments) Value Level of Consciousness Alert 0 Ask patient month and their age Answers both correct 0 Command to open eyes, make fist and let go Obeys both correct 0 Best gaze (horizontal eye movement) Normal 0 Visual Field Testing No Visual Field Loss 0 Facial Paresis Normal / Symmetrical 0 Motor Function - Left Arm Normal 0 Motor Function - Right Arm Normal 0 Motor Function - Left Leg Normal 0 Motor Function - Right Leg No effort against gravity 3 Limb Ataxia No Ataxia 0 Sensory-pin prick to arms, legs, trunk and face Normal 0 Best Language (describe picture, name items and read) No Aphasia 0 Dysarthria (read several words) Normal Articulation 0 Extinction and Inattention Normal 0 Total 3 DX & DISP Departure Condition: Stable Referrals: ANAHY VEGAS STUDIO ASSISTANT (PCP) CHARLI DOMINGUEZ BULK SYSTEM OPERATOR Aug 19, 2024 21:56
[2024-08-19] MEDS: 0.9%NACL 1000ML 1,000 ML IV ONE (21:57)
[2024-08-19 21:59] LABS: ADD UA MICROSCOPIC YES
[2024-08-19 22:00] LABS: IMMATURE GRANULOCYTE ABSOLUTE 0.01 K/uL (0-1); NUCLEATED RED BLOOD CELLS 0.0 % (0.0-0.19); PLATELET COUNT (AUTO) 310 K/uL (130-400); RED BLOOD CELL COUNT(AUTO) 4.78 MIL/uL (4.00-5.50); RED CELL DISTRIBUTION WIDTH 12.7 % (11.0-15.5); WHITE BLOOD COUNT (AUTO) 7.8 K/uL (4.8-10.8)
[2024-08-19 22:02] LABS: SQUAMOUS EPITHELIAL CELL,UR MANY /HPF (0-2)
[2024-08-19 22:07] LABS: CREATININE 0.5 mg/dL (0.5-1.0); GLOMERULAR FILTR. RATE CALC 122.0 mL/min (>90); GLUCOSE,RANDOM 95.0 mg/dL (70-105); SODIUM SERUM 145.0 mmol/L (136-145); UREA NITROGEN, BLOOD 16.0 mg/dL (7-18)
[2024-08-19 22:16] LABS: CREATINE KINASE, TOTAL 66.0 U/L (21-232)
--- NOTE | 2024-08-19 23:16 | HMCIMG ---
EXAM: CR Chest, 1 view CLINICAL HISTORY: Dizziness. COMPARISON: Chest radiograph dated 01/04/2019. FINDINGS: The lungs show no infiltrates or other acute findings. No pleural effusion or pneumothorax. The cardiomediastinal silhouette is within normal limits. No acute osseous abnormality. IMPRESSION: No acute cardiopulmonary process is evident. No interval changes. /[place]
--- NOTE | 2024-08-20 00:59 | HMCIMG ---
EXAM: Non-contrast CT examination of the Brain CLINICAL HISTORY: Dizziness. Near syncope. TECHNIQUE: Thin collimated axial CT images of the brain were obtained, with sagittal and coronal reformatted images also submitted. A CT scan was done according to ALARA (As low as reasonably achievable). CONTRAST USED: None. COMPARISON: None provided. FINDINGS: Subtle peripheral wedge-shaped hypodensities and poor pierce-white matter differentiation in the bilateral frontal lobes, concerning acute infarctions. No hemorrhage or mass is evident. No hydrocephalus or abnormal extra-axial fluid collections. The posterior fossa is unremarkable. The skull base and calvarium are intact. The included portions of the paranasal sinuses and mastoid air cells are clear. IMPRESSION: Subtle peripheral wedge-shaped hypodensities and poor pierce-white matter differentiation in the bilateral frontal lobes, concerning acute infarctions. Recommend an MRI of the brain including DWI for further evaluation. /[place]
--- NOTE | 2024-08-20 02:08 | NUR ---
TRANSFER CALL PLACED TO [facility] TO INITIATE TRANSFER FOR NEUROLOGY SERVICES
[2024-08-20 03:03] VITALS: BP 121/74; PULSE 60; RESP 17; TEMP 98.5; O2SAT 99
--- NOTE | 2024-08-20 03:04 | NUR ---
TRANSFER PT. WAS ACCEPTED @ 0241 BY SNOW WOODARD [place] [facility] AT THIS TIME: 1302. REPORT: [phone]
--- NOTE | 2024-08-20 03:17 | NUR ---
[facility] CALLED FOR TRANSPORT OF MONITORED PT. PLACED "ON HOLD."
--- NOTE | 2024-08-20 03:21 | NUR ---
[facility] CALL FOR TRANSPORT OF MONITORED PATIENT.
--- NOTE | 2024-08-20 03:28 | NUR ---
REPORT CALLED TO LORI LA AT [facility]. AWAITING EMS TRANSPORT
== END ==
LOC: EDH 21:08
DX: R51.9 Headache, unspecified (principal); R42 Dizziness and giddiness; R53.1 Weakness; E66.01 Morbid (severe) obesity due to excess calories; Z68.43 Body mass index [BMI] 50.0-59.9, adult
CPT/HCPCS: 99285; 70450; 71045; 82550; 84484; 80048; 85025; 81001; 81025; 36415; 93005; J7030